=== PATIENT | male | born 1955 | race Caucasian/White ===

== ENCOUNTER 2021-04-16 09:19 | Outpatient (REF) | payer OTHER, SELFPAY ==
[2021-04-16 11:34] LABS: Hematocrit 43.8 % (42-52); Hemoglobin 14.5 g/dl (14.0-18.0); Mean Corpuscular HGB Conc 33.1 g/dl (31.0-36.0); Mean Corpuscular Hemoglobin 29.2 pg (27.0-33.0); Mean Corpuscular Volume 88.1 fL (80-98); Mean Platelet Volume 11.5 fL (9.4-12.4); Platelet Count 320 X10*3/uL (160-400); Red Blood Count 4.97 X10*6/uL (4.60-5.80); Red Cell Distribution Width 13.7 % (11.0-16.0); White Blood Count 5.9 X10*3/uL (4.8-10.8)
[2021-04-16 11:55] LABS: B Type Natriuretic Peptide 34 pg/mL (<100)
[2021-04-16 12:02] LABS: Alanine Aminotransferase 33 U/L (0-40); Albumin Level 4.2 g/dL (3.5-5.0); Alkaline Phosphatase 82 U/L (39-117); Anion Gap 14 (12-20); Aspartate Amino Transferase 47 U/L (5-37); Bilirubin Total 0.5 mg/dL (0.0-1.0); Blood Urea Nitrogen 11 mg/dL (9-16); Calcium 9.3 mg/dL (8.4-10.2); Carbon Dioxide 27 mmol/L (22-29); Chloride 101 mmol/L (96-108); Cholesterol 190 mg/dL; Estimated Glomerular Filt Rate 56; Glucose Fasting 104 mg/dL (60-99); HDL Cholesterol 43 mg/dL; Iron 40 mcg/dL (45-160); LDL Cholesterol Calculated 132 mg/dl; Lactate Dehydrogenase 254 U/L (118-273); Percent Iron Saturation 10 % (15-50); Potassium 4.4 mmol/L (3.3-5.1); Sodium 138 mmol/L (135-145); Total Iron Binding Capacity 403 mcg/dL (228-428); Total Protein 6.2 g/dL (6.5-8.0); Triglycerides 79 mg/dL; Unsaturated Iron Binding 363 ug/dL
[2021-04-16 12:28] LABS: Ferritin 27 ng/mL (20-250); Prostate Specific Antigen Scr 0.26 ng/mL (<0.05-4.0); TSH reflex Free T4 2.55 uIU/mL (0.32-4.0); Vitamin D 25-OH Total 54.1 ng/mL (>30)
[2021-04-16 12:33] LABS: Folate > 20.0 ng/mL (> or = 4.0); Vitamin B12 469 pg/mL (200-900)
[2021-04-16 12:50] LABS: Erythrocyte Sedimentation Rate 2 MM/HR (0-15)
[2021-04-18 10:32] LABS: IgA 128 mg/dL (70-320); IgG 371 mg/dL (600-1540); IgM 49 mg/dL (50-300)
[2021-04-21 14:21] LABS: Testosterone, Free 52.4 pg/mL (35.0-155.0); Testosterone, Total 904 ng/dL (250-1100)
== END 2021-04-16 09:20 | disposition home or self-care (01) ==
LOC: HO.HMGCLDS 09:19
PROVIDERS: PCP Internal Medicine; Visit Provider Internal Medicine
DX: Z00.00 Encounter for general adult medical examination without abnormal findings (principal); Z12.5 Encounter for screening for malignant neoplasm of prostate; K58.9 Irritable bowel syndrome, unspecified; R63.4 Abnormal weight loss; E55.9 Vitamin D deficiency, unspecified; D23.9 Other benign neoplasm of skin, unspecified
CPT/HCPCS: 36415; 80053; 80061; 82306; 82607; 82728; 82746; 82784; 83540; 83615; 83880; 84153; 84402; 84403; 84443; 85027; 85652; 86334